=== PATIENT | female | born 1985 | race Caucasian/White ===

== ENCOUNTER 2020-05-03 10:43 | Emergency (ER) | payer OTHER, SELFPAY ==
[2020-05-03 10:50] VITALS: BP 120/83; PULSE 72; RESP 16; TEMP 36.3; O2SAT 98; BMI 22.8
[2020-05-03 12:14] VITALS: BP 119/85; PULSE 116; RESP 14
--- NOTE | 2020-05-03 12:43 | W.ED.SKABFB ---
HPI - Skin/Abscess/Foreign Bdy General: Chief complaint: Skin/Abscess/Foreign Body Stated complaint: rash Time Seen by Provider: 05/03/20 12:10 Source: patient Mode of arrival: ambulatory Limitations: no limitations History of Present Illness: HPI narrative: Patient is a 34-year-old female who presents to ED today with complaints of a rash to her bilateral hands, upper extremities, lower extremities. Patient tells me the rash is pruritic. She has noticed the rash over the past 3 to 4 days. She has not had any new chemical, household, or environmental exposures. She tells me currently during my exam that the rash is much better than it has been. She also feels like both of her hands are swollen. Patient was diagnosed with COVID approximately 2.5 weeks ago and wonders if her symptoms could be related. MD complaint: rash Onset (ago): day(s) Tetanus up to date: yes Quality: pruritic Relieving factors: none Exacerbating factors: none Context: none Associated symptoms: Deny chills, fever(s), nausea or vomiting Treatments prior to arrival: Marianela Review of Systems Const: Denies: fever(s), chills, body aches, change in appetite, change in weight, fatigue or malaise Eyes: Denies: change in vision, blurry vision, photophobia or eye discomfort ENMT: Denies: throat pain, odynophagia, ear discharge or nasal congestion Card: Denies: chest pain, palpitations, irregular heart rhythm, edema, swelling of feet/ankles, lightheadedness, syncope, pre-syncope or dyspnea on exertion Resp: Denies: dyspnea, productive cough or chest congestion GI: Denies: nausea or vomiting Musc: Reports: extremity swelling (bilateral hands); Denies: neck pain, back pain, extremity pain, joint pain or joint swelling Skin/Breast: Reports: rash and pruritus Neuro: Denies: headache(s), numbness in extremities, weakness in extremities or sensory changes Physical Exam Const: COMMON NORMALS: no acute distress, average body habitus, patient oriented x3, no limitations, healthy appearing, alert and well nourished HENMT: COMMON NORMALS: normocephalic and atraumatic HEAD & SCALP: normocephalic and atraumatic Resp: COMMON NORMALS: normal respiratory effort and clear to auscultation bilaterally AUSCULTATION: clear to auscultation bilaterally Cardio: COMMON NORMALS: regular rate and regular rhythm RATE: regular rate RHYTHM: regular rhythm Extremity: COMMON NORMALS: normal to inspection and full ROM OTHER: I do not appreciate any/much swelling to her bilateral hands Neuro: COMMON NORMALS: patient oriented x3, moves all extremities, no focal motor deficits and no sensory deficits noted SENSORIUM/ORIENTATION: Yes alert Skin: OTHER: pt has a few scattered erythematous lesions (some flat others appear as wheels) measuring approx 2-3mm to her L forearm and L lower leg; there are no lesions currently on her hands (she tells me they were present earlier) Course Vital Signs: Vital signs: Vital Signs Temperature 97.3 F L 05/03/20 10:50 Pulse Rate 116 H 05/03/20 12:14 Respiratory Rate 14 05/03/20 12:14 Blood Pressure 119/85 05/03/20 12:14 Pulse Oximetry 98 05/03/20 10:50 MDM - Skin/Abscess/Foreign Bdy MDM Narrative: Medical decision making narrative: At this point I do not feel patient's rash or symptoms are anything emergent in nature. Recommend she follow-up with her primary care provider. We also did discuss a possible referral to dermatology if rash continues or worsens. Discharge Plan Discharge Patient Disposition: Home Clinical Impression: Rash of unknown cause Condition: Stable Discharge Orders: Discharge ED (Routine); Ordered 05/03/20 Ordered By: Josephine Gardner Referrals: Jim Gtz MD [Primary Care Provider] - Stand Alone Forms: Work/School Release Coding Level of Care Code ED Veterinarian for Adam Fortune
== END 2020-05-03 12:56 | disposition home or self-care (01) ==
PROVIDERS: Emergency Provider Physician Assistant; Family Provider Family Medicine; PCP Family Medicine
DX: R21 Rash and other nonspecific skin eruption (principal)
CPT/HCPCS: 12345; 99281

== ENCOUNTER → 2020-10-26 09:36 | Outpatient (BNVA) | payer OTHER, SELFPAY | PROVIDERS: Family Provider Family Medicine; PCP Family Medicine; Visit Provider Internal Medicine Rheumatology | DX: M19.90 Unspecified osteoarthritis, unspecified site (principal); R76.8 Other specified abnormal immunological findings in serum; M35.9 Systemic involvement of connective tissue, unspecified; N91.1 Secondary amenorrhea; Z79.899 Other long term (current) drug therapy | CPT/HCPCS: 36415; 84702; 99204 ==

== ENCOUNTER → 2021-05-17 00:01 | Outpatient (BNVA) | payer OTHER, SELFPAY | PROVIDERS: Family Provider Family Medicine; PCP Family Medicine; Visit Provider Nurse Practitioner Family | DX: Z20.822 Contact with and (suspected) exposure to COVID-19 (principal) | CPT/HCPCS: 87426; 87635 ==

== ENCOUNTER 2021-09-08 07:19 | Emergency (ER) | payer OTHER, SELFPAY ==
[2021-09-08 07:28] VITALS: BP 126/80; PULSE 60; RESP 14; TEMP 36.7; O2SAT 99; BMI 23.6
[2021-09-08 09:35] VITALS: BP 147/91; PULSE 78; O2SAT 96
--- NOTE | 2021-09-08 09:57 | ED_ITS ---
HPI - Female Genitourinary General: Chief complaint: Urogenital-Female Stated complaint: Wants to be tested for HIV Time Seen by Provider: 09/08/21 07:22 Source: patient Mode of arrival: ambulatory Limitations: no limitations History of Present Illness: Patient is a nice 35-year-old female who presents to the ED today stating she got a text/facebook message from a male sexual partner that she had unprotected intercourse with 4 months ago who told her he tested positive for gonorrhea. Patient states she has not had any symptoms over the past 4 months/since their encounter but would like evaluation today. Male individual did send her the remainder of STD testing results and they were negative for HIV, chlamydia, syphilis, and hepatitis panel (results were sent from male individual from his patient portal to patient's phone where I visualized negative results). Patient states now she is anxious and states she is questioning whether her physiologic discharge (also reports she has had BV in the past) could actually be gonorrhea. MD elicited complaint: other (possible exposure to STD) Associated symptoms: Deny abdominal pain, nausea or vaginal discharge Sexual activity: Yes Patient : No Review of Systems Const: Denies: fever(s), chills, body aches, fatigue or malaise GI: Denies: abdominal pain, nausea, vomiting or diarrhea : Denies: flank pain, difficulty voiding, dysuria, urinary frequency, urinary urgency, urinary hesitancy, urinary incontinence, hematuria, genital lesions, vaginal odor, vaginal bleeding, vaginal discharge or pelvic pain Musc: Denies: back pain Skin/Breast: Denies: rash PFSH ED PFSH: Medical History Amenorrhea, secondary Inflammatory arthritis Positive MARGARITO (antinuclear antibody) Undifferentiated connective tissue disease Surgical History History of elbow surgery History of tubal ligation Family History Other CAD (coronary artery disease) Cancer Diabetes Hyperlipidemia Hypertension Denies family history of Rheumatoid arthritis Lupus Chronic kidney disease (CKD) Lung disease Stroke Social History Smoking and tobacco status: never smoked Alcohol intake: never History of recent travel: No Physical Exam Const: COMMON NORMALS: no acute distress, average body habitus, patient oriented x3, no limitations, healthy appearing, alert and well nourished GI: COMMON NORMALS: Normal to inspection, nondistended, normoactive bowel sounds present, Soft to palpation, non-tender, No hepatosplenomegaly present and no masses PALPATION: Yes Soft to palpation and Yes No hepatosplenomegaly present : COMMON NORMALS: Yes no CVA tenderness BLADDER/KIDNEY EXAM: Yes no CVA tenderness OTHER: pt deferred Back/Pelvis: COMMON NORMALS: no CVA tenderness Neuro: COMMON NORMALS: patient oriented x3 SENSORIUM/ORIENTATION: Yes alert Course Vital Signs: Vital signs: Vital Signs Temperature 98.0 F 09/08/21 07:28 Pulse Rate 77 09/08/21 11:16 Respiratory Rate 14 09/08/21 07:28 Blood Pressure 147/55 09/08/21 11:16 Pulse Oximetry 97 09/08/21 11:16 [facility] - Female Medical Decision Making Patient is a nice 35-year-old female here for evaluation after she was told by a previous male individual whom she had unprotected intercourse with 4 months ago that he recently tested positive for gonorrhea. Patient does not have any complaints of vaginal discharge, odor, dyspareunia, pelvic pain, or dysuria. Other individual had results of other testing and he was negative for chlamydia, hepatitis, HIV, and syphilis. I think at this point it is reasonable (seeing how she is asymptomatic and encounter was 4 months ago) that we hold off on treatment at this time and collect swabs to test prior to treatment. Patient was given self collect wet prep and gonorrhea/chlamydia swabs. Wet prep results did return prior to her discharge and she does have clue cells present. Patient states she does have a history of BV however she does not complain of vaginal discharge or odor therefore it is acceptable not to treat as most women will clear this infection on their own. Patient will be called if her gonorrhea or chlamydia test comes back positive and we can initiate treatment at that time. Discharge Plan Discharge Patient Disposition: Home Clinical Impression: Possible exposure to STD, BV (bacterial vaginosis) Condition: Stable Prescriptions: No Action ibuprofen 200 mg tablet 400 mg PO TID PRN0RF acetaminophen [Tylenol Extra Strength] 500 mg tablet 1,000 mg PO TID PRN0RF fluconazole [Diflucan] 150 mg tablet 150 mg PO Q3D Qty: 2 0RF dexamethasone 6 mg tablet 6 mg PO DAILY 7 Days Qty: 7 0RF azithromycin 250 mg tablet See Rx Instructions PO .COMPLEX Qty: 6 0RF Rx Instructions: take 500 mg today (day 1), then 250 mg for 4 days (days 2-5) PO Discharge Orders: Discharge ED (Routine); Ordered 09/08/21 Ordered By: Josephine Gardner Referrals: Jim Gtz MD [Primary Care Provider] - Coding Level of Care Code ED Environmental Research Project Manager for Chg Fwd Exam Expanded Problem Focused
[2021-09-08 11:16] VITALS: BP 147/55; PULSE 77; O2SAT 97
== END 2021-09-08 11:18 | disposition home or self-care (01) ==
PROVIDERS: Emergency Provider Physician Assistant; PCP Family Medicine
DX: Z20.2 Contact with and (suspected) exposure to infections with a predominantly sexual mode of transmission (principal); N76.0 Acute vaginitis
CPT/HCPCS: 87210; 87491; 87591; 99282

== ENCOUNTER 2021-11-21 23:03 | Emergency (ER) | payer OTHER, SELFPAY ==
[2021-11-21 23:09] VITALS: BP 145/97; PULSE 63; RESP 17; TEMP 36.5; O2SAT 98; BMI 23.6
--- NOTE | 2021-11-21 23:43 | W.ED.BACK ---
HPI - Back Pain/Injury General: Chief Complaint: Back Pain/Injury Stated Complaint: Lower to Middle Back Pain Time Seen by Provider: 11/21/21 23:18 History of Present Illness: 36-year-old female comes in today with complaints of low back pain radiating into the left hip and lower leg. Patient appears nontoxic. Patient appears in moderate pain. Patient reports 1 week ago she was stretching while laying in bed and felt a pop in her lower back since then she has had the pain radiating to the hip and left leg. Patient appears well. Patient moves without difficulty. Associated symptoms: Deny fever(s), nausea or vomiting Review of Systems General: Reports: 10 or more systems reviewed and unremarkable except in HPI and below Const: Denies: fever(s) Card: Denies: chest pain Resp: Denies: dyspnea GI: Denies: nausea or vomiting Musc: Reports: back pain PFS ED PFSH: Medical History Amenorrhea, secondary Inflammatory arthritis Positive MARGARITO (antinuclear antibody) Undifferentiated connective tissue disease Surgical History History of elbow surgery History of tubal ligation Family History Other CAD (coronary artery disease) Cancer Diabetes Hyperlipidemia Hypertension Denies family history of Rheumatoid arthritis Lupus Chronic kidney disease (CKD) Lung disease Stroke Social History Smoking and tobacco status: never smoked Alcohol intake: never History of recent travel: No Physical Exam Const: COMMON NORMALS: alert HENMT: COMMON NORMALS: normocephalic HEAD & SCALP: normocephalic Neck/C-Spine: COMMON NORMALS: full ROM Back/Pelvis: THORACIC SPINE/UPPER BACK: No thoracic spinal tenderness LUMBAR SPINE/LOWER BACK: No lumbar spinal tenderness and Yes paraspinal muscle tenderness Lumbar paraspinal muscle tenderness: left left lumbar paraspinal muscle tenderness: L3, L4 and L5 Extremity: COMMON NORMALS: normal to inspection and full ROM Neuro: SENSORIUM/ORIENTATION: Yes alert Skin: COMMON NORMALS: no rashes or lesions noted GENERAL SKIN EXAM: no rashes or lesions noted Course Vital Signs: Vital signs: Vital Signs Temperature 97.7 F 11/21/21 23:09 Pulse Rate 63 11/21/21 23:09 Respiratory Rate 17 11/21/21 23:09 Blood Pressure 145/97 11/21/21 23:09 Pulse Oximetry 98 11/21/21 23:09 MDM - Back Pain/Injury Medical Decision Making 36-year-old female comes in today for complaints of pain to the low back radiating to the left hip and lower leg. On exam patient was all extremities well. No spinal tenderness is noted on palpation. Patient does have some paraspinous muscle tenderness on the left lower back. Negative leg lift test. Differential diagnosis includes not limited to strain of the lumbar spine, intervertebral disc disease, facet arthropathy. Reviewed exam with patient recommendations for treatment with anti-inflammatory and pain medication. Patient was given a dose of ketorolac and dexamethasone in the ER. Patient was written prescriptions for diclofenac and 6 tablets of hydrocodone. Patient was recommended to follow-up with primary care for further instruction. Return to ER for new concerns. Discharge Plan Discharge Patient Disposition: Home Clinical Impression: Strain of lumbar region Qualifiers: Encounter type: initial encounter Qualified Code(s): S39.012A - Strain of muscle, fascia and tendon of lower back, initial encounter Condition: Stable Prescriptions: New diclofenac sodium 75 mg tablet,delayed release (DR/EC) 75 mg PO BID Qty: 20 0RF hydrocodone-acetaminophen 5-325 mg tablet 1 tab PO Q12H PRN (Reason: pain (scale score 7-10)) Qty: 6 0RF Discontinued dexamethasone 6 mg tablet 6 mg PO DAILY 7 Days Qty: 7 0RF azithromycin 250 mg tablet See Rx Instructions PO .COMPLEX Qty: 6 0RF Rx Instructions: take 500 mg today (day 1), then 250 mg for 4 days (days 2-5) PO No Action ibuprofen 200 mg tablet 400 mg PO TID PRN0RF acetaminophen [Tylenol Extra Strength] 500 mg tablet 1,000 mg PO TID PRN0RF fluconazole [Diflucan] 150 mg tablet 150 mg PO Q3D Qty: 2 0RF Discharge Orders: Discharge ED (Routine); Ordered 11/21/21 Ordered By: Demetrius Del Rio Referrals: Jim Gtz MD [Primary Care Provider] - Discharge Diet: Usual diet Discharge Activity: Increase activity as tolerated Patient Instructions: Low Back Strain (ED), Opioid Safety Activity Restrictions/Additional Instructions: Light activity. Gentle stretching and range of motion exercises. Avoid heavy lifting and straining. Drink plenty of water with medication. Take diclofenac routinely for the next 5 to 10 days or until pain has resolved. Use acetaminophen to help control pain. Use hydrocodone for severe pain. Do not use hydrocodone if driving or operating heavy equipment that may injure yourself or others. Follow-up with primary care in 1 week for recheck. Return to ER for new concerns. Stand Alone Forms: Work/School Release Coding Level of Care Code ED Case Management Associate for Adam Fortune
[2021-11-22] MEDS: dexamethasone 10 mg/mL INJ IM (00:03)
[2021-11-22] MEDS: ketorolac 30 mg/mL INJ IM (00:03)
--- NOTE | 2021-11-22 00:09 | PC.NURSE ---
Patient given [place] 5/325 to take home per EXTRUSION DIE TEMPLATE MAKER orders.
== END 2021-11-22 00:09 | disposition home or self-care (01) ==
PROVIDERS: Emergency Provider Nurse Practitioner Family; PCP Family Medicine
DX: S39.012A Strain of muscle, fascia and tendon of lower back, initial encounter (principal); X50.9XXA Other and unspecified overexertion or strenuous movements or postures, initial encounter
CPT/HCPCS: 96372; 99284; J1100; J1885

== ENCOUNTER 2022-06-22 06:10 | Emergency (ER) | payer OTHER, SELFPAY ==
[2022-06-22] VITALS (7 sets, daily range): BP systolic 112–130; BP diastolic 72–80; PULSE 58–66; RESP 12–18; TEMP 36.7; O2SAT 97–99; BMI 22.8
--- NOTE | 2022-06-22 06:16 | ECG_ITS ---
[facility] Test Date: 2022-06-22 Pat Name: Michelle Carter Department: Room: Gender: Female Lead Operator: : 1985 Requested By: Devon Dhaliwal Order Number: [id number] Lynn MD: Christin Sanchez M.D. Measurements Intervals [place] Rate: 57 P: 12 MT: 164 QRS: 45 QRSD: 101 T: 36 QT: 409 QTc: 400 Interpretive Statements SINUS BRADYCARDIA LOW QRS VOLTAGE IN PRECORDIAL LEADS [QRS DEFLECTION < 1.0 mV IN CHEST LEADS] POSSIBLE RIGHT VENTRICULAR CONDUCTION DELAY [RSR (QR) IN V1/V2] No previous ECG available for comparison Electronically Signed On 06-22-2022 22:19:54 TRIPE FINISHER by Christin Sanchez M.D. [id number]
--- NOTE | 2022-06-22 06:16 | XRR_ITS ---
PROCEDURE INFORMATION: Exam: XR Chest Exam date and time: 06/22/2022 6:30 AM Age: 36 years old Clinical indication: Pain; Angina pectoris; Additional info: Chest pain TECHNIQUE: Imaging protocol: Radiologic exam of the chest. Views: 1 view. COMPARISON: No relevant prior studies available. FINDINGS: Lungs: Unremarkable. No consolidation. Pleural spaces: Unremarkable. No pleural effusion. No pneumothorax. Heart/Mediastinum: Unremarkable. No cardiomegaly. Bones/joints: Unremarkable. XR/XR chest 1V portable [id number] IMPRESSION: No acute findings.
--- NOTE | 2022-06-22 06:25 | W.ED.CHESTPA ---
HPI - Chest Pain General: Chief Complaint: Chest Pain Stated Complaint: CHEST PAIN Time Seen by Provider: 06/22/22 06:16 Source: patient Mode of arrival: EMS History of Present Illness: 36-year-old female presents to the emergency room complaining of left-sided chest pain that began while she was at work it radiates into her left arm. She has not noticed anything that exacerbates or relieves it. She still has some mild discomfort now. She denies any significant shortness of breath she denies any diaphoresis noted with this. No fever sweats chills or cough. MD complaint: chest pain Onset (ago): minute(s) Timing of current episode: episodic Prior episodes: No Onset: during exertion Pain location: left chest Pain radiation: left arm Severity: mild Quality: tightness and aching Relieving factors: nothing Exacerbating factors: nothing Associated symptoms: Reports dyspnea; Deny abdominal pain, diaphoresis, fever(s), leg edema, nausea, palpitations, sense of impending doom, syncope or vomiting Treatment prior to arrival: none Review of Systems Const: Denies: fever(s), chills, fatigue, malaise or diaphoresis ENMT: Denies: throat pain, ear or mastoid pain, nasal discharge or nasal congestion Card: Reports: chest pain; Denies: palpitations, irregular heart rhythm, edema or syncope Resp: Reports: dyspnea; Denies: productive cough or non-productive cough GI: Denies: abdominal pain, nausea or vomiting : Denies: flank pain, difficulty voiding, dysuria, urinary frequency or urinary urgency Skin/Breast: Denies: rash or pruritus PFSH ED PFSH: Medical History Amenorrhea, secondary Inflammatory arthritis Positive MARGARITO (antinuclear antibody) Undifferentiated connective tissue disease Surgical History History of elbow surgery History of tubal ligation Family History Other CAD (coronary artery disease) Cancer Diabetes Hyperlipidemia Hypertension Denies family history of Rheumatoid arthritis Lupus Chronic kidney disease (CKD) Lung disease Stroke Social History Smoking and tobacco status: never smoked Alcohol intake: never Female Reproductive History: Date of last menstrual period: 06/18/22 Physical Exam Const: GENERAL APPEARANCE: cooperative and comfortable ORIENTATION/CONSCIOUSNESS: Yes awake, Yes oriented to person, Yes oriented to place and Yes oriented to time HENMT: COMMON NORMALS: normocephalic, atraumatic and hearing grossly normal bilaterally HEAD & SCALP: normocephalic and atraumatic Resp: COMMON NORMALS: normal respiratory effort, No retractions, No use of accessory muscles and clear to auscultation bilaterally AUSCULTATION: clear to auscultation bilaterally Cardio: COMMON NORMALS: regular rate, regular rhythm and No murmurs present (Cardio) RATE: regular rate RHYTHM: regular rhythm GI: COMMON NORMALS: Soft to palpation and No hepatosplenomegaly present AUSCULTATION: Yes normoactive bowel sounds PALPATION: Yes Soft to palpation, No Tenderness to palpation present (GI), No Guarding due to palpation present (GI) and Yes No hepatosplenomegaly present : COMMON NORMALS: Yes no CVA tenderness BLADDER/KIDNEY EXAM: Yes no CVA tenderness Back/Pelvis: COMMON NORMALS: no CVA tenderness Extremity: COMMON NORMALS: normal to inspection, capillary refill normal, no clubbing, cyanosis or edema, no calf tenderness and no pedal edema Neuro: SENSORIUM/ORIENTATION: Yes oriented to person, Yes oriented to place and Yes oriented to time Skin: COMMON NORMALS: no rashes or lesions noted GENERAL SKIN EXAM: no rashes or lesions noted Course Vital Signs: Vital signs: Vital Signs Temperature 98.1 F 06/22/22 06:14 Pulse Rate 62 06/22/22 09:30 Respiratory Rate 18 06/22/22 09:30 Blood Pressure 119/77 06/22/22 09:30 Pulse Oximetry 97 06/22/22 09:30 Oxygen Delivery Me thod 06/22/22 06:14 MDM - Chest Pain Medical Decision Making EKG unremarkable no further episodes of chest pain cardiac enzymes negative. Patient has no significant risk factors. She does have some rheumatoid arthritis I suspect some of this may be musculoskeletal in nature. We will give her Doke diclofenac to use as needed and have her follow-up with her primary care doctor return if she has worsening symptoms. Medical Records I reviewed the patient's medical records. Lab Data I reviewed the patient's lab results. 06/22/22 06:19 06/22/22 06:19 Radiology Impressions Chest X-Ray 06/22/22 06:16 IMPRESSION: No acute findings. Laboratory Results WBC 7.6 10^3/uL (4.0-10.0) 06/22/22 06:19 RBC 4.71 10^6/uL (4.1-5.3) 06/22/22 06:19 Hgb 13.5 g/dL (11.5-15.3) 06/22/22 06:19 Hct 41.8 % (37.0-47.0) 06/22/22 06:19 MCV 88.7 fl (81-99) 06/22/22 06:19 MCH 28.7 pg (28.0-34.0) 06/22/22 06:19 MCHC 32.3 g/dL (30.0-36.0) 06/22/22 06:19 RDW 12.8 % (12.1-15.1) 06/22/22 06:19 Plt Count 290 10^3/cmm (130-400) 06/22/22 06:19 MPV 9.7 fL (7.4-10.4) 06/22/22 06:19 Neut % (Auto) 49.4 % 06/22/22 06:19 Lymph % (Auto) 38.6 % 06/22/22 06:19 [place] % (Auto) 9.5 % 06/22/22 06:19 Eos % (Auto) 1.7 % 06/22/22 06:19 Baso % (Auto) 0.5 % 06/22/22 06:19 Neut # (Auto) 3.76 10^3/uL (1.8-7.7) 06/22/22 06:19 Lymph # (Auto) 2.9 10^3/uL (0.8-4.8) 06/22/22 06:19 [place] # (Auto) 0.7 10^3/uL (0.2-0.9) 06/22/22 06:19 Eos # (Auto) 0.1 10^3/uL (0.0-0.8) 06/22/22 06:19 Baso # (Auto) 0.0 10^3/uL (0.0-0.1) 06/22/22 06:19 Nucleated RBC % (auto) 0 % 06/22/22 06:19 Nucleated RBCs # 0.0 /100WBC 06/22/22 06:19 Sodium 138 mmol/L (136-145) 06/22/22 06:19 Potassium 3.5 mmol/L (3.5-5.1) 06/22/22 06:19 Chloride 102 mmol/L (98-107) 06/22/22 06:19 Carbon Dioxide 23 mmol/L (22-29) 06/22/22 06:19 Anion Gap 16.5 (5-19) 06/22/22 06:19 BUN 14 mg/dL (6-20) 06/22/22 06:19 Creatinine 0.8 mg/dL (0.5-0.9) 06/22/22 06:19 GFR Calculation 81.2 mL/min (90-130) L 06/22/22 06:19 Glucose 107 mg/dL (65-115) 06/22/22 06:19 Calculated Osmolality 287 mOsm/kg (285-295) 06/22/22 06:19 Calcium 9.0 mg/dL (8.5-10.5) 06/22/22 06:19 Total Bilirubin 0.4 mg/dL (0.15-1.2) 06/22/22 06:19 AST 19 U/L (0-32) 06/22/22 06:19 ALT 16 U/L (0-33) 06/22/22 06:19 Alkaline Phosphatase 42 U/L (35-105) 06/22/22 06:19 Troponin T Baseline 6 ng/L (0-10) 06/22/22 06:19 Troponin T 120 Minute 6.00 ng/L (0-10) 06/22/22 09:06 Total Protein 7.3 g/dL (6.6-8.7) 06/22/22 06:19 Albumin 4.0 g/dL (3.5-5.2) 06/22/22 06:19 Globulin 3.3 g/dL (1.3-4.6) 06/22/22 06:19 Discharge Plan Discharge Patient Disposition: Home Clinical Impression: Atypical chest pain Condition: Stable Prescriptions: New diclofenac sodium 75 mg tablet,delayed release (DR/EC) 75 mg PO Q12H PRN (Reason: pain) Qty: 20 0RF Discharge Orders: Discharge ED (Routine); Ordered 06/22/22 Ordered By: Devon Reyes Referrals: Jim Gtz MD [Primary Care Provider] - Discharge Diet: Usual diet Discharge Activity: Resume usual activity Patient Instructions: Opioid Safety, Pain Management Activity Restrictions/Additional Instructions: You were seen today for left-sided chest pain. Your cardiac enzymes and EKGs did not show any acute changes. Suspect it is more musculoskeletal related. Give you diclofenac to use as needed recommend you follow-up with your primary care doctor within the next week to review. If you have worsening or change symptoms return to the emergency room Coding Level of Care Code ED Storage Facility Rental Clerk for Adam Fortune
[2022-06-22 06:30] LABS: Basophils % 0.5 %; Eosinophils # 0.1 10^3/uL (0.0-0.8); Eosinophils % 1.7 %; Hematocrit 41.8 % (37.0-47.0); Hemoglobin 13.5 g/dL (11.5-15.3); Lymphocytes # 2.9 10^3/uL (0.8-4.8); Lymphocytes % 38.6 %; Mean Corpuscular HGB Conc 32.3 g/dL (30.0-36.0); Mean Corpuscular Hemoglobin 28.7 pg (28.0-34.0); Mean Corpuscular Volume 88.7 fl (81-99); Mean Platelet Volume 9.7 fL (7.4-10.4); Monocytes # 0.7 10^3/uL (0.2-0.9); Monocytes % 9.5 %; Neutrophils # 3.76 10^3/uL (1.8-7.7); Neutrophils % 49.4 %; Nucleated Red Blood Cells % 0 %; Platelet Count 290 10^3/cmm (130-400); Red Blood Count 4.71 10^6/uL (4.1-5.3); Red Cell Distribution Width 12.8 % (12.1-15.1); White Blood Count 7.6 10^3/uL (4.0-10.0)
[2022-06-22 06:50] LABS: Alanine Aminotransferase 16 U/L (0-33); Alkaline Phosphatase 42 U/L (35-105); Anion Gap 16.5 (5-19); Aspartate Amino Transferase 19 U/L (0-32); Blood Urea Nitrogen 14 mg/dL (6-20); Carbon Dioxide 23 mmol/L (22-29); Chloride 102 mmol/L (98-107); Globulin 3.3 g/dL (1.3-4.6); Glomerular Filtration Rate 81.2 mL/min (90-130); Glucose 107 mg/dL (65-115); Osmolality Calculated 287 mOsm/kg (285-295); Potassium 3.5 mmol/L (3.5-5.1); Sodium 138 mmol/L (136-145); Total Bilirubin 0.4 mg/dL (0.15-1.2); Total Protein 7.3 g/dL (6.6-8.7)
--- NOTE | 2022-06-22 07:51 | ECG_ITS ---
[facility] Test Date: 2022-06-22 Pat Name: Michelle Carter Department: Room: Gender: Female Manual Arts Therapist: : 1985 Requested By: Devon Dhaliwal Order Number: [id number] Lynn MD: Christin Sanchez M.D. Measurements Intervals [place] Rate: 56 P: -1 VT: 164 QRS: 29 QRSD: 98 T: 14 QT: 433 QTc: 419 Interpretive Statements SINUS BRADYCARDIA WITH SINUS ARRHYTHMIA NONSPECIFIC T-WAVE ABNORMALITY Compared to ECG 06/22/2022 06:18:00 T-wave abnormality now present Electronically Signed On 06-22-2022 22:20:29 INSURANCE TERRITORY MANAGER by Christin Sanchez M.D. [id number]
[2022-06-22 08:05] LABS: Troponin(5th) Baseline 6 ng/L (0-10)
[2022-06-22 10:02] LABS: Troponin 5 2HR Delta 0 ABS# (0-10)
== END 2022-06-22 10:04 | disposition home or self-care (01) ==
PROVIDERS: Emergency Provider Family Medicine; PCP Family Medicine
DX: R07.89 Other chest pain (principal)
CPT/HCPCS: 71045; 80053; 84484; 85025; 93005; 99285

== ENCOUNTER 2022-12-01 20:40 | Emergency (ER) | payer SELFPAY ==
[2022-12-01 21:05] VITALS: BP 113/65; PULSE 122; RESP 18; TEMP 37.2; O2SAT 97; BMI 25.1
--- NOTE | 2022-12-01 21:11 | ED_ITS ---
HPI - General Adult General: Chief complaint: General Medical Stated complaint: fever, bodyache, hot flashes, headache Time Seen by Provider: 12/01/22 20:50 History of Present Illness: 37-year-old female comes in today with complaints of fever and cough for the last 2 days. Patient appears mildly unwell but not toxic. Patient does have a history of autoimmune disease. Patient reports not taking routine medications at this time. Associated symptoms: Deny chest pain, dyspnea, nausea, rash or vomiting Review of Systems General: Reports: 10 or more systems reviewed and unremarkable except in HPI and below Card: Denies: chest pain Resp: Reports: non-productive cough; Denies: dyspnea GI: Denies: nausea or vomiting : Denies: difficulty voiding Skin/Breast: Denies: rash PFSH ED PFSH: Medical History Amenorrhea, secondary Inflammatory arthritis Positive MARGARITO (antinuclear antibody) Undifferentiated connective tissue disease Surgical History History of elbow surgery History of tubal ligation Family History Other CAD (coronary artery disease) Cancer Diabetes Hyperlipidemia Hypertension Denies family history of Rheumatoid arthritis Lupus Chronic kidney disease (CKD) Lung disease Stroke Social History Smoking and tobacco status: never smoked Alcohol intake: never Physical Exam Const: COMMON NORMALS: alert HENMT: COMMON NORMALS: normocephalic HEAD & SCALP: normocephalic Neck/C-Spine: COMMON NORMALS: full ROM Resp: COMMON NORMALS: normal respiratory effort and clear to auscultation bilaterally AUSCULTATION: clear to auscultation bilaterally Cardio: COMMON NORMALS: regular rate and regular rhythm RATE: regular rate RHYTHM: regular rhythm GI: COMMON NORMALS: Soft to palpation and non-tender PALPATION: Yes Soft to palpation : COMMON NORMALS: Yes no CVA tenderness BLADDER/KIDNEY EXAM: Yes no CVA tenderness Back/Pelvis: COMMON NORMALS: no CVA tenderness Extremity: COMMON NORMALS: full ROM Neuro: SENSORIUM/ORIENTATION: Yes alert Skin: COMMON NORMALS: turgor normal GENERAL SKIN EXAM: turgor normal Course Vital Signs: Vital signs: Vital Signs Temperature 98.9 F 12/01/22 21:05 Pulse Rate 122 H 12/01/22 21:05 Respiratory Rate 18 12/01/22 21:05 Blood Pressure 113/65 12/01/22 21:05 Pulse Oximetry 97 12/01/22 21:05 Oxygen Delivery Me thod Room Air 12/01/22 21:05 MDM - General Adult Medical Decision Making 37-year-old female comes in today for complaints of cough and fever starting yesterday. On exam lungs are clear to auscultation. Skin is warm and dry. Vital signs are normal. Differential diagnosis includes but not limited to pneumonia, upper respiratory infection, viral syndrome. Influenza and COVID test were negative. Chest x-ray was unremarkable. Believe the patient probably has a viral bronchitis. Patient was given 1 dose of dexamethasone to help with cough. Patient will continue with [id number] medications and follow-up as needed for persistent or worsening symptoms. Lab Data 12/01/22 21:30 12/01/22 21:30 Radiology Impressions Chest X-Ray 12/01/22 21:16 IMPRESSION: No acute cardiopulmonary abnormality. Laboratory Results WBC 6.6 10^3/uL (4.0-10.0) 12/01/22 21: RBC 5.05 10^6/uL (4.1-5.3) 12/01/22 21:30 Hgb 14.3 g/dL (11.5-15.3) 12/01/22 21: Hct 43.3 % (37.0-47.0) 12/01/22: MCV 85.7 fl (81-99) 12/01/22 21:30 MCH 28.3 pg (28.0-34.0) 12/01/22 21: MCHC 33.0 g/dL (30.0-36.0) 12/01/22: RDW 12.9 % (12.1-15.1) 12/01/22 21: Plt Count 256 10^3/cmm (130-400) 12/01/22 21: MPV 9.9 fL (7.4-10.4) 12/01/22 21: Neut % (Auto) 71.1 % 12/01/22 21:30 Lymph % (Auto) 16.5 % 12/01/22 21:30 [place] % (Auto) 11.1 % 12/01/22 21:30 Eos % (Auto) 0.5 % 12/01/22 21:30 Baso % (Auto) 0.5 % 12/01/22 21:30 Neut # (Auto) 4.66 10^3/uL (1.8-7.7) 12/01/22 21: Lymph # (Auto) 1.1 10^3/uL (0.8-4.8) 12/01/22 21:30 [place] # (Auto) 0.7 10^3/uL (0.2-0.9) 12/01/22 21: Eos # (Auto) 0.0 10^3/uL (0.0-0.8) 12/01/22 21: Baso # (Auto) 0.0 10^3/uL (0.0-0.1) 12/01/22 21: Nucleated RBC % (auto) 0 % 12/01/22 21: Nucleated RBCs # 0.0 /100WBC 12/01/22 21:30 Sodium 138 mmol/L (136-145) 12/01/22 21:30 Potassium 3.6 mmol/L (3.5-5.1) 12/01/22 21: Chloride 104 mmol/L (98-107) 12/01/22 21: Carbon Dioxide 22 mmol/L (22-29) 12/01/22 21:30 Anion Gap 15.6 (5-19) 12/01/22 21:30 BUN 8 mg/dL (6-20) 12/01/22 21:30 Creatinine 0.9 mg/dL (0.5-0.9) 12/01/22 21:30 GFR Calculation 70.5 mL/min (90-130) L 12/01/22 21:30 Glucose 114 mg/dL (65-115) 12/01/22 21: Calculated Osmolality 285 mOsm/kg (285-295) 12/01/22:30 Calcium 9.1 mg/dL (8.5-10.5) 12/01/22 21:30 Total Bilirubin 0.4 mg/dL (0.15-1.2) 12/01/22 21:30 AST 16 U/L (0-32) 12/01/22 21:30 ALT 16 U/L (0-33) 12/01/22 21:30 Alkaline Phosphatase 42 U/L (35-105) 12/01/22 21:30 C-Reactive Protein 11.1 mg/L (0.0-4.9) H 12/01/22 21:30 Total Protein 7.3 g/dL (6.6-8.7) 12/01/22 21:30 Albumin 4.2 g/dL (3.5-5.2) 12/01/22 21:30 Globulin 3.1 g/dL (1.3-4.6) 12/01/22 21:30 HCG, Qual Negative (Negative) 12/01/22 21:30 Influenza Type A Ag negative (Negative) 12/01/22 21:34 Influenza Type B Ag negative (Negative) 12/01/22 21:34 SARS-CoV-2 Ag (Rapid) negative (Negative) 12/01/22 21:34 Discharge Plan Discharge Patient Disposition: Home Clinical Impression: Bronchitis Condition: Stable Prescriptions: No Action hydroxychloroquine 200 mg tablet 200 mg PO BID Qty: 60 3RF prednisone 20 mg tablet 20 mg PO DAILY Qty: 30 1RF Rx Instructions: Take 1-2 tabs per day up to 7 days as needed. Discharge Orders: Discharge ED (Routine); Ordered 12/01/22 Ordered By: Demetrius Del Rio Referrals: Jim Gtz MD [Primary Care Provider] - Discharge Diet: Usual diet Discharge Activity: Increase activity as tolerated Patient Instructions: Acute Bronchitis (ED) Activity Restrictions/Additional Instructions: Most often bronchitis is caused by a virus. Fever will last 3 to 5 days, cough may persist up to 3 weeks. Drink plenty of water and fluids. Use acetaminophen and ibuprofen for discomfort. Use Delsym [id number] as needed for cough. Follow-up with primary care in 1 week for recheck. Return to ED for new concerns or worsening symptoms such as inability to hold fluids down, increasing shortness of breath, or new concerns. Coding Level of Care Code ED Force Adjustment Supervisor for Adam Fortune
--- NOTE | 2022-12-01 21:16 | XRR_ITS ---
PROCEDURE INFORMATION: Exam: XR Chest Exam date and time: 12/01/2022 10:01 PM Age: 37 years old Clinical indication: Cough TECHNIQUE: Imaging protocol: Radiologic exam of the chest. Views: 1 view. COMPARISON: CR XR chest 1V portable [id number] 06/22/2022 6:30 AM FINDINGS: Lungs: Clear, symmetrically inflated lungs. Pleural spaces: No pleural effusion. No pneumothorax. Heart/Mediastinum: Cardiac silhouette is normal in size for technique. Bones/joints: Age appropriate. XR/XR chest 1V portable [id number] IMPRESSION: No acute cardiopulmonary abnormality.
[2022-12-01 21:42] LABS: Basophils % 0.5 %; Eosinophils % 0.5 %; Hematocrit 43.3 % (37.0-47.0); Hemoglobin 14.3 g/dL (11.5-15.3); Lymphocytes # 1.1 10^3/uL (0.8-4.8); Lymphocytes % 16.5 %; Mean Corpuscular Hemoglobin 28.3 pg (28.0-34.0); Mean Corpuscular Volume 85.7 fl (81-99); Mean Platelet Volume 9.9 fL (7.4-10.4); Monocytes # 0.7 10^3/uL (0.2-0.9); Monocytes % 11.1 %; Neutrophils # 4.66 10^3/uL (1.8-7.7); Neutrophils % 71.1 %; Nucleated Red Blood Cells % 0 %; Platelet Count 256 10^3/cmm (130-400); Red Blood Count 5.05 10^6/uL (4.1-5.3); Red Cell Distribution Width 12.9 % (12.1-15.1); White Blood Count 6.6 10^3/uL (4.0-10.0)
[2022-12-01 21:50] LABS: HCG, Serum Qual Negative (Negative)
[2022-12-01 22:02] LABS: Alanine Aminotransferase 16 U/L (0-33); Albumin Level 4.2 g/dL (3.5-5.2); Alkaline Phosphatase 42 U/L (35-105); Anion Gap 15.6 (5-19); Aspartate Amino Transferase 16 U/L (0-32); Blood Urea Nitrogen 8 mg/dL (6-20); C Reactive Protein 11.1 mg/L (0.0-4.9); Calcium 9.1 mg/dL (8.5-10.5); Carbon Dioxide 22 mmol/L (22-29); Chloride 104 mmol/L (98-107); Globulin 3.1 g/dL (1.3-4.6); Glomerular Filtration Rate 70.5 mL/min (90-130); Glucose 114 mg/dL (65-115); Osmolality Calculated 285 mOsm/kg (285-295); Potassium 3.6 mmol/L (3.5-5.1); Sodium 138 mmol/L (136-145); Total Bilirubin 0.4 mg/dL (0.15-1.2); Total Protein 7.3 g/dL (6.6-8.7)
[2022-12-01 22:05] LABS: Influenza A by IFA negative (Negative); Influenza B by IFA negative (Negative); SARS Covid-2 Antigen negative (Negative)
[2022-12-01] MEDS: dexamethasone 10 mg/mL INJ IM (22:37)
[2022-12-01 22:42] VITALS: BP 119/97; PULSE 105; RESP 18; O2SAT 98
== END 2022-12-01 22:43 | disposition home or self-care (01) ==
PROVIDERS: Emergency Provider Nurse Practitioner Family; PCP Family Medicine
DX: J40 Bronchitis, not specified as acute or chronic (principal); Z20.822 Contact with and (suspected) exposure to COVID-19
CPT/HCPCS: 36415; 71045; 80053; 84703; 85025; 86140; 87426; 87804; 96372; 99284; J1100

== ENCOUNTER → 2022-12-28 14:08 | Outpatient (BNVA) | payer MEDICAID, SELFPAY | PROVIDERS: PCP Family Medicine; Visit Provider Internal Medicine Rheumatology | DX: M19.90 Unspecified osteoarthritis, unspecified site (principal); M35.9 Systemic involvement of connective tissue, unspecified; Z79.899 Other long term (current) drug therapy; R76.8 Other specified abnormal immunological findings in serum | CPT/HCPCS: 99214 ==

== ENCOUNTER 2023-08-14 09:42 | Outpatient (CLI) | payer OTHER, SELFPAY ==
--- NOTE | 2023-08-14 09:51 | XR_ITS ---
WS: [id number] Exam: XR hand RT 2V [id number] Date/Time of Exam: 08/14/2023 10:00 AM Reason For Exam: R HAND PAIN Findings: No fractures, soft tissue swelling, or unusual calcifications are noted. The hand shows normal bony alignment. There is no irregularity of the bony architecture. IMPRESSION: Normal RIGHT hand.
== END 2023-08-14 09:43 | disposition home or self-care (01) ==
LOC: RAD 09:45
PROVIDERS: PCP Family Medicine; Visit Provider Dermatology
DX: M79.641 Pain in right hand (principal)
CPT/HCPCS: 73120